=== PATIENT | female | born 1985 | race African-American/Black ===

== ENCOUNTER 2017-11-27 17:50 | Observation (INO) | payer OTHER ==
[~2017-11-27] VITALS: Ht 162.6 cm; Wt 117.9 kg
== END 2017-11-27 18:50 | disposition home or self-care (01) ==
LOC: SPU 17:50
PROVIDERS: ADMIT Obstetrics & Gynecology; ATTEND Obstetrics & Gynecology
DX: O26.892 Other specified pregnancy related conditions, second trimester (principal); N89.8 Other specified noninflammatory disorders of vagina; Z3A.26 26 weeks gestation of pregnancy
CPT/HCPCS: 81002; G0378

== ENCOUNTER 2018-09-15 22:12 | Emergency (ER) | payer OTHER ==
[~2018-09-15] VITALS: Ht 160 cm; Wt 105.7 kg
[2018-09-15 22:27] VITALS: BP_SYST 130
--- NOTE | 2018-09-15 22:33 | NUR ---
Pt placed to ER waiting room in stable condition.
--- NOTE | 2018-09-15 22:59 | NUR ---
Dr. Carter at bedside for pt eval
--- NOTE | 2018-09-15 23:47 | NUR ---
Patient to ER bed 1 to gown for evaluation. Side rails up. Report given to Demetris LYNCH.
--- NOTE | 2018-09-15 23:57 | NUR ---
Pt BIB family to ED C/O active vag bleed for few hours this evening. Pt states she is 10 weeks into her . No other significant med Hx reported by pt. VSS, no s/s of acute distress.
[2018-09-15 23:59] LABS: HEMATOCRIT 34.2 % (36-48); MEAN CORPUSCULAR HEMOGLOBIN 26 pg (27-31); MEAN CORPUSCULAR HGB CONC 32 % (32-36); MEAN CORPUSCULAR VOLUME 82 fL (79.0-98.0); PLATELET COUNT (AUTO) 325 K/uL (130-430); RED BLOOD CELL COUNT(AUTO) 4.19 MIL/uL (4.2-6.2); WHITE BLOOD COUNT (AUTO) 15.2 K/uL (4.8-10.8)
--- NOTE | 2018-09-16 00:01 | NUR ---
Pt taken to radiology for U/S study. Pt in stable condition
[2018-09-16 00:02] LABS: BASOPHILS % (AUTO) 0.7 % (0.0-2.0); CALCIUM 9.2 mg/dL (8.4-11.0); CREATININE 0.8 mg/dL (0.55-1.30); EOSINOPHILS % (AUTO) 0.5 % (0.0-4.0); LYMPHOCYTES # (AUTO) 2.7 K/uL (1.0-5.5); LYMPHOCYTES % (AUTO) 17.8 % (20.5-51.5); MONOCYTES # (AUTO) 0.7 K/uL (0.0-1.0); MONOCYTES % (AUTO) 4.7 % (1.7-9.3); NEUTROPHILS # (AUTO) 11.6 K/uL (1.8-7.7); NEUTROPHILS % (AUTO) 76.3 % (40.0-70.0); POTASSIUM 3.6 mmol/L (3.5-5.1)
[2018-09-16 00:03] LABS: BASOPHILS # (AUTO) 0.1 K/uL (0.0-0.2); EOSINOPHILS # (AUTO) 0.1 K/uL (0.0-0.4)
[2018-09-16 00:31] LABS: ALBUMIN 3.3 g/dL (3.4-4.8); TOTAL BILIRUBIN 0.3 mg/dL (0.0-1.0)
--- NOTE | 2018-09-16 00:47 | NUR ---
Pt back from radiology, well tolerated
[2018-09-16 01:30] VITALS: BP_SYST 128
--- NOTE | 2018-09-16 01:30 | NUR ---
Patient given written and verbal discharge instructions and verbalizes understanding. ER MD discussed with patient the results and treatment provided. Patient in stable condition. ID arm band removed. Patient educated on pain management and to follow up with PMD. Opportunity for questions provided and answered.
== END 2018-09-16 01:30 | disposition home or self-care (01) ==
LOC: SED 22:12
DX: O46.91 Antepartum hemorrhage, unspecified, first trimester (principal); Z3A.10 10 weeks gestation of pregnancy; Z86.2 Personal history of diseases of the blood and blood-forming organs and certain disorders involving the immune mechanism
CPT/HCPCS: 36415; 76801; 76817; 80053; 84702-TC; 85025; 99284

== ENCOUNTER 2019-04-08 22:33 | Observation (INO) | payer OTHER ==
[~2019-04-08] VITALS: Ht 160 cm; Wt 104.3 kg
[2019-04-08 23:37] LABS: BASOPHILS # (AUTO) 0.1 K/uL (0.0-0.2); BASOPHILS % (AUTO) 0.7 % (0.0-2.0); EOSINOPHILS # (AUTO) 0.1 K/uL (0.0-0.4); EOSINOPHILS % (AUTO) 0.6 % (0.0-4.0); HEMATOCRIT 30.2 % (36-48); HEMOGLOBIN 10.9 g/dL (12.0-16.0); LYMPHOCYTES # (AUTO) 2.1 K/uL (1.0-5.5); LYMPHOCYTES % (AUTO) 17.3 % (20.5-51.5); MEAN CORPUSCULAR HEMOGLOBIN 31 pg (27-31); MEAN CORPUSCULAR HGB CONC 36 % (32-36); MEAN CORPUSCULAR VOLUME 86 fL (79.0-98.0); MONOCYTES # (AUTO) 0.8 K/uL (0.0-1.0); MONOCYTES % (AUTO) 6.5 % (1.7-9.3); NEUTROPHILS # (AUTO) 8.9 K/uL (1.8-7.7); NEUTROPHILS % (AUTO) 74.9 % (40.0-70.0); PLATELET COUNT (AUTO) 289 K/uL (130-430); RED BLOOD CELL COUNT(AUTO) 3.53 MIL/uL (4.2-6.2); RED CELL DISTRIBUTION WIDTH 15.5 % (9.0-15.0); WHITE BLOOD COUNT (AUTO) 11.9 K/uL (4.8-10.8)
[2019-04-08 23:58] LABS: BILIRUBIN,URINE NEGATIVE (NEGATIVE); BLOOD, URINE NEGATIVE (NEGATIVE); CLARITY/URINE CLEAR (CLEAR); COLOR,URINE YELLOW (YELLOW); GLUCOSE,URINE NEGATIVE (NEGATIVE); KETONES,URINE TRACE (NEGATIVE); LEUKOCYTE ESTERASE ,URINE NEGATIVE (NEGATIVE); NITRITE, URINE NEGATIVE (NEGATIVE); PH,URINE 6.5 (5.0-8.0); PROTEIN URINE TRACE (NEGATIVE)
[2019-04-08 23:59] LABS: UROBILINOGEN,URINE >=8 (0.2-1.0)
[2019-04-09] LABS: POTASSIUM 3.8 mmol/L (3.5-5.1)
[2019-04-09 00:01] LABS: ALBUMIN 2.5 g/dL (3.4-4.8); CALCIUM 8.6 mg/dL (8.4-11.0); CREATININE 0.65 mg/dL (0.55-1.30); TOTAL BILIRUBIN 0.3 mg/dL (0.0-1.0); URIC ACID 4.4 mg/dL (2.4-7.0)
[2019-04-09 00:02] LABS: BACTERIA,URINE FEW /HPF (None Seen); RBC,URINE 0-3 /HPF (0-3); WBC,URINE 0-3 /HPF (0-3)
== END 2019-04-09 00:32 | disposition home or self-care (01) ==
LOC: SPU 22:33
PROVIDERS: ADMIT Specialist; ATTEND Specialist
DX: O26.892 Other specified pregnancy related conditions, second trimester (principal); O62.9 Abnormality of forces of labor, unspecified; Z3A.26 26 weeks gestation of pregnancy
CPT/HCPCS: 36415; 59025; 80053; 81000; 81002; 84550; 85025; G0378 ×2